=== PATIENT | male | born 1960 | race Caucasian/White ===

== ENCOUNTER 2016-10-15 10:28 | Emergency (ER) | payer MEDICAID ==
[2016-10-15] MEDS ORDERED: DIPHENOX/ATROPINE 2.5/0.025 MG TABLET PO STA (12:19)
[2016-10-15] MEDS ORDERED: DEXAMETHASONE 10 MG/ML VIAL PO STA (12:19)
[2016-10-15] MEDS ORDERED: ONDANSETRON ODT 4 MG TABLET TL STA (12:19)
[2016-10-15] MEDS ORDERED: CHERRY SYRUP 10 ML UDC PO ONE (12:37)
[2016-10-15] MEDS ORDERED: ONDANSETRON ODT 4 MG TABLET ONE (12:37)
[2016-10-15] MEDS ORDERED: DIPHENOX/ATROPINE 2.5/0.025 MG TABLET PO ONE (12:37)
[2016-10-15] MEDS ORDERED: DEXAMETHASONE 10 MG/ML VIAL ONE (12:37)
== END 2016-10-15 13:20 | disposition home or self-care (01) ==
DX: R11.2 Nausea with vomiting, unspecified (principal); R19.7 Diarrhea, unspecified
CPT/HCPCS: 99282; 99283; A9270; Q0162

== ENCOUNTER 2018-03-09 15:13 | Outpatient (CLI) | payer MEDICAID ==
--- NOTE | 2018-03-09 16:43 | XRAY Report ---
Reason: HALLUX VALGUS BUNION Procedure Date: 03/09/2018 Accession Number: [id number] / [id number] Procedure: XR - Foot 3 View RT CPT Code: FULL RESULT: EXAM: RIGHT FOOT RADIOGRAPHY EXAM DATE: 03/09/2018 03:32 PM. CLINICAL HISTORY: Hallux valgus, bunion. COMPARISON: None. TECHNIQUE: 3 views. FINDINGS: Bones: Normal. No fractures or bone lesions. Joints: There is joint space narrowing at the first metatarsophalangeal joint with sclerosis and subchondral lucency as well as reactive bone formation and soft tissue density. IMPRESSION: Joint space loss and degenerative changes with soft tissue swelling about the first metatarsophalangeal joint. The radiographic appearance with joint space loss without significant osseous destruction is somewhat atypical for gout, consider correlation with laboratory values. [facility]
== END 2018-03-09 15:14 | disposition home or self-care (01) ==
LOC: DI 15:13
PROVIDERS: ATTEND Physician Assistant Medical
DX: M19.071 Primary osteoarthritis, right ankle and foot (principal)

== ENCOUNTER 2019-11-17 14:36 | Emergency (ER) | payer MEDICAID ==
[2019-11-17 14:48] VITALS: BP 166/90
== END 2019-11-17 15:30 | disposition left against medical advice (07) ==
LOC: ED 14:36
DX: Z53.21 Procedure and treatment not carried out due to patient leaving prior to being seen by health care provider (principal)

== ENCOUNTER 2019-11-28 17:29 | Emergency (ER) | payer MEDICAID ==
[2019-11-28 17:35] VITALS: BP 160/90
[2019-11-28] MEDS ORDERED: TETANUS/DIPHTHERIA/PERTUSSIS 0.5 ML SYRINGE IM ONE (17:41)
[2019-11-28] MEDS ORDERED: SULFAMETH/TRIMETH DS 800/160 MG TABLET PO STA (17:41)
[2019-11-28] MEDS ORDERED: cephALEXin 250 MG CAPSULE PO STA (17:41)
--- NOTE | 2019-11-28 17:44 | ED Physician Documentation ---
History of Present Illness - Stated complaint Stated Complaint: RT HAND SWELLING/REDNESS - Chief complaint Chief Complaint: Ext Problem - History obtained from History obtained from: Patient - History of Present Illness Timing: How many weeks ago (1.5) Pain level max: 1 Pain level now: 1 - Additonal information Additional information: 58-year-old male states that he accidentally cut the back of his right hand with a razor blade approximately 1.5 weeks ago. Noticed increased redness and swelling over the past few days. Nothing makes it better or worse. Unknown last tetanus. He is right-handed. No fevers. No drainage. Review of Systems Constitutional: denies: Fever, Chills Skin: denies: Rash Neurologic: denies: Headache PD PAST MEDICAL HISTORY - Past Medical History Cardiovascular: None Endocrine/Autoimmune: None - Past Surgical History Past Surgical History: No - Present Medications Home Medications: Ambulatory Orders Medication Instructions Recorded Confirmed Dicyclomine [Bentyl] 20 mg PO QID PRN #15 capsule 10/15/16 Diphenoxylate/Atropine [Lomotil] 1 each PO QID PRN #15 tablet 10/15/16 Ondansetron Odt [Zofran] 4 mg TL Q6H PRN #15 tablet 10/15/16 Cephalexin [Keflex] 500 mg PO Q6H #40 capsule 11/28/19 Sulfamethox/Trimeth 800/160 1 each PO BID #20 tablet 11/28/19 [Bactrim Ds 800/160] - Allergies Allergies/Adverse Reactions: Allergies Allergy/AdvReac Type Severity Reaction Status Date / Time No Known Drug Allergies Allergy Verified 11/28/19 17:31 - Social History Does the pt smoke?: No Smoking Status: Never smoker Does the pt drink ETOH?: Yes Does the pt have substance abuse?: Yes - Immunizations Immunizations are current?: No Immunizations: TDAP >10years/unknown PD ED PE NORMAL - Vitals Vital signs reviewed: Yes - General General: Alert and oriented X 3, No acute distress - HEENT HEENT: Moist mucous membranes - Derm Derm: Warm and dry - Extremities Extremities: Other (Swelling and erythema to the dorsum of the right hand. No erythematous streaks. No palmar tenderness. Full range of motion of the hand without pain.) - Neuro Neuro: Alert and oriented X 3 Results - Vitals Vitals: Vital Signs - 24 hr 11/28/19 17:31 Temperature 36.5 C Heart Rate 87 Respiratory 14 Rate Blood Pressure 160/90 H O2 Saturation 100 Oxygen O2 Source Room air PD MEDICAL DECISION MAKING - ED course Complexity details: considered differential, d/w patient ED course: Patient with cellulitis of the dorsum of the right hand. No evidence of deep space infection. No evidence of osteomyelitis. Neurovascular intact. Tdap given. We will place on antibiotics and have him follow-up with his doctor for further care and a wound check. Patient counseled regarding the need for close follow-up. Patient counseled regarding signs and symptoms for which I believe and urgent re-evaluation would be necessary. Patient with good understanding of and agreement to plan and is comfortable going home at this time This document was made in part using voice recognition software. While efforts are made to proofread this document, sound alike and grammatical errors may occur. Departure - Departure Disposition: 01 Home, Self Care Clinical Impression: Cellulitis Qualifiers: Site of cellulitis: extremity Site of cellulitis of extremity: upper extremity Laterality: right Qualified Code(s): L03.113 - Cellulitis of right upper limb Condition: Good Instructions: ED Infec Skin Cellulitis Follow-Up: Your,doctor in 2-3 days [Other] Prescriptions: Cephalexin [Keflex] 500 mg PO Q6H #40 capsule Sulfamethox/Trimeth 800/160 [Bactrim Ds 800/160] 1 each PO BID #20 tablet Comments: Take all antibiotics until gone. Return if you worsen. You need to follow-up either here or with your doctor in 2 to 3 days for a wound check. Return sooner if you are worsening including increasing swelling, fevers or redness going up the arm.
== END 2019-11-28 17:49 | disposition home or self-care (01) ==
LOC: ED 17:29
DX: S61.411A Laceration without foreign body of right hand, initial encounter (principal); L03.113 Cellulitis of right upper limb; W26.0XXA Contact with knife, initial encounter; Z23 Encounter for immunization
CPT/HCPCS: 90471; 90715; 99283; 99284; A9270

== ENCOUNTER 2021-04-27 14:43 | Emergency (ER) | payer MEDICAID ==
[2021-04-27 14:52] VITALS: BP 170/93
[2021-04-27] MEDS ORDERED: BUFFERED LIDOCAINE 10 ML SYRINGE SUBQ STA (15:15)
--- NOTE | 2021-04-27 15:19 | ED Physician Documentation ---
History of Present Illness - Stated complaint Stated Complaint: right arm lac - Chief complaint Chief Complaint: Ext Problem - Additonal information Additional information: 60-year-old [id number] male presents the emergency department for evaluation of a laceration on his right forearm. He was up on a metal roof this afternoon cleaning the gutters in the rain when he slipped cutting his forearm on a sharp edge. Reports last tetanus within the last 5 years. Bleeding is controlled with pressure. He did not fall off the roof or strike his head. Review of Systems Constitutional: denies: Fever, Chills Eyes: reports: Reviewed and negative Nose: reports: Reviewed and negative Throat: reports: Reviewed and negative Respiratory: reports: Reviewed and negative GI: reports: Reviewed and negative : reports: Reviewed and negative Skin: reports: Laceration (s) Musculoskeletal: reports: Reviewed and negative PD PAST MEDICAL HISTORY - Past Medical History Cardiovascular: None Endocrine/Autoimmune: None - Past Surgical History Past Surgical History: No - Present Medications Home Medications: Ambulatory Orders Medication Instructions Recorded Confirmed Dicyclomine [Bentyl] 20 mg PO QID PRN #15 capsule 10/15/16 Diphenoxylate/Atropine [Lomotil] 1 each PO QID PRN #15 tablet 10/15/16 Ondansetron Odt [Zofran] 4 mg TL Q6H PRN #15 tablet 10/15/16 Sulfamethox/Trimeth 800/160 1 each PO BID #20 tablet 11/28/19 [Bactrim Ds 800/160] cephALEXin [Keflex] 500 mg PO Q6H #40 capsule 11/28/19 - Allergies Allergies/Adverse Reactions: Allergies Allergy/AdvReac Type Severity Reaction Status Date / Time No Known Drug Allergies Allergy Verified 04/27/21 14:52 - Social History Does the pt smoke?: No Smoking Status: Never smoker Does the pt drink ETOH?: Yes Does the pt have substance abuse?: Yes - Immunizations Immunizations are current?: No Immunizations: TDAP >10years/unknown PD ED PE EXPANDED - General General: Alert, No acute distress - Extremities Extremities: Right forearm (4 cm V skin avulsion/lceration with exposed fatty tissue. normal flexion extension wrist and hand against resistance) Results - Vitals Vitals: Vital Signs - 24 hr 04/27/21 14:45 Temperature 36.6 C Heart Rate 100 Respiratory 16 Rate Blood Pressure 170/93 H O2 Saturation 97 Oxygen O2 Source Room air Procedures - Laceration (location) right forearm laceration Length in cm: 4 Wound type: Irregular, Flap Neurovascular status: Sensory intact Tendon involvement: Tendon intact Anesthesia: LET Wound preparation: Hibiclens, Irrigated copiously NS Skin layer closure: [place] (7) Other: Patient tolerated well, No complications, Neurovascular intact, Tetanus UTD PD MEDICAL DECISION MAKING - ED course Complexity details: reviewed results, re-evaluated patient ED course: 60-year-old male with right forearm laceration sustained when cleaning a metal gutters. No evidence of tendon involvement. Tetanus is up-to-date. 6 anju were placed in this flap laceration. Routine wound care emergent return precautions discussed. Departure - Departure Disposition: 01 Home, Self Care Clinical Impression: Forearm laceration with complication Qualifiers: Encounter type: initial encounter Laterality: right Qualified Code(s): S51.811A - Laceration without foreign body of right forearm, initial encounter Condition: Stable Record reviewed to determine appropriate education?: Yes Comments: Your anju should be removed in 7 to 10 days. In 24 hours you may remove the dressing wash gently with warm soap and water, apply any antibiotic ointment and a simple bandage. Your tetanus is up-to-date. Please attempt to keep your wound clean and dry. Do not submerge it in dirty dishwater or bath water. Return to the emergency department if you have any concerns of infection such as redness, fevers milky drainage increased pain.
== END 2021-04-27 15:54 | disposition home or self-care (01) ==
LOC: ED 14:43
DX: S51.811A Laceration without foreign body of right forearm, initial encounter (principal); W26.9XXA Contact with unspecified sharp object(s), initial encounter; Y93.H9 Activity, other involving exterior property and land maintenance, building and construction; Y92.008 Other place in unspecified non-institutional (private) residence as the place of occurrence of the external cause
CPT/HCPCS: 12002; 99281; 99282

== ENCOUNTER 2021-07-06 08:59 | Emergency (ER) | payer MEDICAID ==
[2021-07-06] MEDS ORDERED: ONDANSETRON ODT 4 MG TABLET TL STA (09:54)
--- NOTE | 2021-07-06 09:56 | ED Physician Documentation ---
History of Present Illness - Stated complaint Stated Complaint: C+ SOA/CHILLS/VOMITING - Chief complaint Chief Complaint: Resp - History obtained from History obtained from: Patient - History of Present Illness Timing: How many days ago (3) Pain level max: 4 Pain level now: 3 - Additonal information Additional information: Patient is a 60-year-old male, positive for COVID [address] [facility]. Has had mild abdominal pain since that time. Has had nausea, emesis x1 today. No diarrhea. No constipation. Has had a cough, congestion and body aches as well. Has not received any COVID vaccinations. The pain is generalized, crampy. Pain is worse with movement and coughing. Better with lying still Review of Systems Constitutional: denies: Fever, Chills Respiratory: reports: Cough GI: reports: Nausea, Vomiting. denies: Diarrhea, Hematemesis, Bloody / black stool : denies: Dysuria Skin: denies: Rash Musculoskeletal: denies: Neck pain, Back pain Neurologic: denies: Headache PD PAST MEDICAL HISTORY - Past Medical History Cardiovascular: None Endocrine/Autoimmune: None - Past Surgical History Past Surgical History: No - Present Medications Home Medications: Ambulatory Orders Medication Instructions Recorded Confirmed Dicyclomine [Bentyl] 20 mg PO QID PRN #15 capsule 10/15/16 Diphenoxylate/Atropine [Lomotil] 1 each PO QID PRN #15 tablet 10/15/16 Ondansetron Odt [Zofran] 4 mg TL Q6H PRN #15 tablet 10/15/16 Sulfamethox/Trimeth 800/160 1 each PO BID #20 tablet 11/28/19 [Bactrim Ds 800/160] cephALEXin [Keflex] 500 mg PO Q6H #40 capsule 11/28/19 Ondansetron Odt [Zofran] 4 mg TL Q6H PRN #10 tablet 07/06/21 Promethazine [Phenergan] 25 mg PO Q6H PRN #10 tab 07/06/21 - Allergies Allergies/Adverse Reactions: Allergies Allergy/AdvReac Type Severity Reaction Status Date / Time No Known Drug Allergies Allergy Verified 07/06/21 09:39 - Social History Does the pt smoke?: No Smoking Status: Never smoker Does the pt drink ETOH?: Yes Does the pt have substance abuse?: Yes - Immunizations Immunizations are current?: No Immunizations: TDAP >10years/unknown PD ED PE NORMAL - Vitals Vital signs reviewed: Yes - General General: Alert and oriented X 3, No acute distress - HEENT HEENT: Moist mucous membranes - Neck Neck: Supple, no meningeal sign - Cardiac Cardiac: RRR - Respiratory Respiratory: No respiratory distress, Clear bilaterally - Abdomen Abdomen: Soft, Non tender, Non distended - Derm Derm: Warm and dry - Neuro Neuro: Alert and oriented X 3 - Psych Psych: Normal mood, Normal affect Results - Vitals Vitals: Vital Signs - 24 hr 07/06/21 07/06/21 07/06/21 09:39 10:00 10:19 Temperature 37.9 C Heart Rate 108 H 100 74 Respiratory 21 20 17 Rate Blood Pressure 148/90 H 159/84 H 155/84 H O2 Saturation 94 99 98 Oxygen O2 Source Room air PD MEDICAL DECISION MAKING - ED course Complexity details: considered differential, d/w patient ED course: 60-year-old male with abdominal pain, nausea and emesis x1. Tested positive for COVID 3 days ago. Also has body aches and congestion. Likely that this is all related to COVID-19. Abdomen is soft, nontender nondistended. Symptoms improved with Zofran. Will place on Zofran and Phenergan for home. No hypoxia. No respiratory distress. Patient counseled regarding signs and symptoms for which I believe and urgent re-evaluation would be necessary. Patient with good understanding of and agreement to plan and is comfortable going home at this time This document was made in part using voice recognition software. While efforts are made to proofread this document, sound alike and grammatical errors may occ ur. Departure - Departure Disposition: Home, Self Care Clinical Impression: Viral syndrome, COVID Condition: Good Instructions: ED Viral Syndrome Follow-Up: your,doctor in 1 week if not better [Other] Prescriptions: Promethazine [Phenergan] 25 mg PO Q6H PRN #10 tab PRN Reason: Nausea / Vomiting Ondansetron Odt [Zofran] 4 mg TL Q6H PRN #10 tablet PRN Reason: Nausea / Vomiting Comments: Your prescriptions were sent to [facility] in [place]. Please follow-up with your doctor for further care. Return if you worsen. Drink plenty of fluids and rest. Your symptoms are likely due to COVID. Continue to stay away from others. Discharge Date/Time: 07/06/21 10:44
[2021-07-06 10:23] VITALS: BP 155/84
== END 2021-07-06 10:44 | disposition home or self-care (01) ==
LOC: ED 08:59
DX: U07.1 COVID-19 (principal); B34.9 Viral infection, unspecified
CPT/HCPCS: 99282; Q0162